=== PATIENT | female | born 1950 | race Caucasian/White ===

== ENCOUNTER → 2017-06-18 | Outpatient (CLI) | payer MEDICARE, OTHER ==
[~2017-06-18] MED LIST: AMLODIPINE BESYL5 MG PO; CRESTOR10 MG PO; JANUVIA25 M1 PO; METFORMIN HCL500 MG PO; MICARDIS HCT1 TABLET PO; PERCOCET 5/31 TABLET PO; SINEQUAN25 MG PO; VALIUM5 MG PO; VITRON-C TABLE1 EACH PO; ZANTAC150 MG PO
== END | disposition home or self-care (01) ==
LOC: CDC 11:17
DX: Z01.810 Encounter for preprocedural cardiovascular examination (principal); T85.49XD Other mechanical complication of breast prosthesis and implant, subsequent encounter; R94.31 Abnormal electrocardiogram [ECG] [EKG]
CPT/HCPCS: 93000

== ENCOUNTER 2017-07-12 12:32 | Day surgery (SDC) | payer OTHER ==
[~2017-07-12] VITALS: Ht 157.5 cm; Wt 82.1 kg
[~2017-07-12 12:32] MED LIST changes: +AMBIEN10 MG PO; +DIOVAN HCT 31 TABLET PO; +LIPITOR20 MG PO; +TRANSDERM-SCOP1 EACH TD; +TYLENOL EXTRA500 MG PO; +VITAMIN 12 PO; +VITAMIN D31000 UNIT PO
[2017-07-12 13:16] LABS: POINT-OF-CARE METER ID UU14174212
[2017-07-12 13:26] VITALS: BP 116/63
[2017-07-12 16:41] LABS: POINT-OF-CARE METER ID UU13113675
[2017-07-12 18:25] VITALS: BP 152/72
[2017-07-12 19:10] VITALS: BP 146/68
== END 2017-07-12 19:18 | disposition home or self-care (01) ==
LOC: SDC 12:32
PROVIDERS: Surgery Plastic and Reconstructive Surgery
PROC: 0HPT0JZ Removal of Synthetic Substitute from Right Breast, Open Approach (ICD-10-PCS; principal; 2017-07-12)
PROC: 0HPU0JZ Removal of Synthetic Substitute from Left Breast, Open Approach (ICD-10-PCS; principal; 2017-07-12)
DX: T85.49XA Other mechanical complication of breast prosthesis and implant, initial encounter (principal); I10 Essential (primary) hypertension; E11.9 Type 2 diabetes mellitus without complications; K21.9 Gastro-esophageal reflux disease without esophagitis; E78.5 Hyperlipidemia, unspecified; Z85.528 Personal history of other malignant neoplasm of kidney; Z88.0 Allergy status to penicillin
CPT/HCPCS: 82948; 87070; 87075; 87205; 88304; J1100; J1170; J1885; J2405; J3010

== ENCOUNTER 2018-04-16 10:09 | Emergency (ER) | payer OTHER ==
[~2018-04-16] VITALS: Ht 157.5 cm; Wt 77.5 kg
[2018-04-16 11:32] LABS: HEMATOCRIT 34.8 % (36.0-46.0); HEMOGLOBIN 11.6 G/DL (11.9-15.5); MCH 32.2 PG (29.0-34.0); MCHC 33.3 G/DL (30.0-36.0); MCV 96.7 FL (83-99); PLATELET COUNT 272 K/uL (156-360); RBC DIS.WIDTH-CV 13.9 % (11.8-14.6); WHITE BLOOD COUNT 7.6 K/uL (4.1-10.2)
[2018-04-16 11:37] LABS: INTER. NORMALIZED RATIO 1.1
[2018-04-16 11:39] LABS: PTT 33.4 SEC (25-37)
[2018-04-16 11:43] LABS: CHLORIDE 112 mEq/L (99-109); POTASSIUM 4.3 mEq/L (3.7-5.4); SODIUM 142 mEq/L (136-147)
[2018-04-16 11:45] LABS: GLUCOSE 92 mg/dL (70-99)
[2018-04-16 11:48] LABS: CREATININE 1.8 mg/dL (0.6-1.3); GFR ESTIMATE (CALCULATED) 30 mL/min/
[2018-04-16 11:49] LABS: UREA NITROGEN (BUN) 24 mg/dL (9-23)
[2018-04-16] MEDS ORDERED: KEFLEX500 MG PO (16:03)
[2018-04-16 16:44] VITALS: BP 120/63
== END 2018-04-16 16:46 | disposition home or self-care (01) ==
LOC: EME 10:09
PROVIDERS: Physician Assistant
DX: G89.18 Other acute postprocedural pain (principal); Z48.89 Encounter for other specified surgical aftercare; Z85.528 Personal history of other malignant neoplasm of kidney; Z90.5 Acquired absence of kidney; K21.9 Gastro-esophageal reflux disease without esophagitis; Z88.0 Allergy status to penicillin; Z88.5 Allergy status to narcotic agent
CPT/HCPCS: 80048; 85027; 85610; 85730; 99281; 99284